=== PATIENT | male | born 1990 | race African-American/Black ===

== ENCOUNTER 2016-07-13 00:32 | Emergency (ER) | payer OTHER ==
[~2016-07-13] VITALS: Ht 180.3 cm; Wt 93.0 kg
[2016-07-13 00:34] VITALS: BP 138/76; PULSE 102; RESP 16; TEMP 98.6; O2SAT 98
[2016-07-13] MEDS ORDERED: CEPHALEXIN MONOHYDRATE 500 MG CAP PO ONE (01:30)
[2016-07-13] MEDS ORDERED: LIDOCAINE 1%/EPINEPHrine 1:100,000 SOLN 20 ML VIAL INFIL ONE (01:30)
[2016-07-13] MEDS ORDERED: SULFAMETHOXAZOLE-TRIMETHOPRIM DS 800-160 MG TAB PO ONE (01:30)
--- NOTE | 2016-07-13 01:50 | PD ---
HPI Chief Complaint: Lump, Cyst, Hernia Time Seen by Provider: 01:10 Travel History International Travel<30 days: No Contact w/Intl Traveler<30days: No Traveled to known affect area: No History of Present Illness HPI Patient comes in a possible abscess to his left lower buttocks that began 3 days. Patient has been using warm compresses to this as well as using Hydrocortone cream with little to no relief of symptoms. Pain is pressure-like in nature without radiation. Pain is worse with palpation. Patient reports he had something similar in the past. Denies any fevers. PFSH Past Medical History Respiratory: Yes (ASTHMA) Social History Alcohol Use: Yes Tobacco Use: No Substance Use: No Allergies-Medications (Allergen,Severity, Reaction): Coded Allergies: No Known Allergies (Unverified , 07/13/16) Reported Meds & Prescriptions Reported Meds & Active Scripts Active Keflex (Cephalexin) 500 Mg Cap 500 Mg PO Q8H Bactrim DS (Sulfamethoxazole-Trimethoprim) 800-160 Mg Tab 1 Tab PO BID Review of Systems Except as stated in HPI: all other systems reviewed are Neg Physical Exam Narrative GENERAL: Well-developed, well nourished, in no acute distress, and non-ill appearing. SKIN: Warm and dry. Indurated fluctuant abscess noted left lower buttocks area is tender to palpation. There is no crepitus. HEAD: Atraumatic. Normocephalic. EYES: Pupils equal and round. EOMI. No scleral icterus. No injection or drainage. ENT: No nasal bleeding or discharge. Mucous membranes pink and moist. NECK: Trachea midline. Supple. No nuclear rigidity. RESPIRATORY: No accessory muscle use. No respiratory distress. MUSCULOSKELETAL: No obvious deformities. No clubbing. No cyanosis. No edema. Full range of motion. NEUROLOGICAL: Awake and alert. No obvious cranial nerve deficits. Motor grossly within normal limits. Normal speech. PSYCHIATRIC: Appropriate mood and affect; insight and judgment normal. Data Data Last Documented VS Vital Signs Date Time Temp Pulse Resp B/P Pulse Ox O2 Delivery O2 Flow Rate FiO2 07/13/16 00:34 98.6 102 16 138/76 98 Orders Lidocai-Epi 1%-1:100,000 Inj (Xylocaine- (07/13/16 01:30) Sulfamet-Trimeth Ds 800-160 Mg (Bactrim (07/13/16 01:30) Cephalexin (Keflex) (07/13/16 01:30) MDM Medical Decision Making Medical Screen Exam Complete: Yes Emergency Medical Condition: Yes Differential Diagnosis Abscess, cellulitis, folliculitis, other Narrative Course The patient has no evidence of significant cellulitis. There is no evidence of necrotizing fasciitis/ Forneys at this time. The patient will be discharged on antibiotics. The patient was given signs and symptoms warnings for worsening infection, such as spreading of redness, increasing pain, and/or swelling, associated heat, or fever or feels worse, and instructed to return immediately if these signs or symptoms worsen. The patient is to return in 2 days for recheck. Sooner if worsens or as needed. The patient agrees with plan. Patient in no obvious distress upon re-evaluation. Patient was asked if they wanted to speak to my attending, which the patient did not wish to do at this time. Any questions/concerns in reference to patient diagnosis/condition discussed and clarified prior to patient's discharge. Reinforced sheer importance of close follow up with patient's primary physician or primary care clinic. Instructed patient to return to ED immediately, if symptoms return/ worsen. Pt showed understanding of above instructions. Further instructions and recommendations were detailed in discharge paperwork. Pt ambulated without difficulty out of ED at discharge. Procedures Procedure Narrative INCISION AND DRAINAGE OF ABSCESS: Verbal consent was obtained. The area was prepped. A subcutaneous wheal of 1% Xylocaine with epi with a total number 3 mL was used to anesthetize the area. The area was properly anesthetized. A number 11 scalpel was used to make a 1-cm incision across the area of the abscess. The abscess was drained and irrigated with normal saline. Quarter inch iodoform packing was placed in the wound. Sterile dressing applied by nurse. Patient tolerated procedure well. Patient advised to return here in 2 days to have packing removed and wound rechecked. Patient verbalized understanding. Procedure was performed with the assistance of staff development educator Katia. Diagnosis Primary Impression: Abscess Patient Instructions: Abscess (GEN), Abscess Follow-up (ED), Abscess Incision and Drainage (DC), General Instructions, Sitz Bath (GEN) Additional Instructions: Follow-up with your primary care physician or return here in 2 days for recheck. Take all medication as prescribed. Apply warm compresses or use sitz baths multiple times a day to facilitate drainage. Return to the emergency department if symptoms get worse. Med/Other Pt SpecificInfo: Prescription(s) given Scripts Cephalexin (Keflex)500 Mg [id number] Mg PO Q8H #30 CAP Ref 0 Prov:Melida Tee MD 07/13/16 Sulfamethoxazole-Trimethoprim (Bactrim DS)800-160 Mg Tab1 Tab PO BID #20 TAB Ref 0 Prov:Melida Tee MD 07/13/16 Disposition: 01 DISCHARGE HOME Condition: Stable Dre Us Jul 13, 2016 01:50
[2016-07-13] MEDS ORDERED: CEPH-460 PO (01:51)
[2016-07-13] MEDS ORDERED: BACT800T5 PO (01:51)
== END 2016-07-13 02:24 | disposition home or self-care (01) ==
LOC: NEPB 00:32
DX: L02.31 Cutaneous abscess of buttock (principal); Z87.09 Personal history of other diseases of the respiratory system
CPT/HCPCS: 10061

== ENCOUNTER 2016-11-09 00:15 | Emergency (ER) | payer SELFPAY ==
[~2016-11-09] VITALS: Ht 175.3 cm; Wt 88.0 kg
[2016-11-09 00:15] VITALS: BP 131/83; PULSE 96; RESP 18; TEMP 99; O2SAT 97
[~2016-11-09 00:15] MED LIST: BACT800T5 PO; CEPH-460 PO
[2016-11-09] MEDS ORDERED: BACT800T5 PO (00:57)
[2016-11-09] MEDS ORDERED: PERC5TAB12 PO (00:57)
[2016-11-09] MEDS ORDERED: METR-1 PO (00:57)
[2016-11-09] MEDS ORDERED: metroNIDAZOLE 500 MG TAB PO ONE (01:00)
[2016-11-09] MEDS ORDERED: oxyCODONE/ACETAMINOPHEN 5 MG/325 MG TAB PO ONE (01:00)
[2016-11-09] MEDS ORDERED: SULFAMETHOXAZOLE-TRIMETHOPRIM DS 800-160 MG TAB PO ONE (01:00)
--- NOTE | 2016-11-09 01:08 | PD ---
HPI Chief Complaint: Lump, Cyst, Hernia Time Seen by Provider: 01:01 Travel History International Travel<30 days: No Contact w/Intl Traveler<30days: No Traveled to known affect area: No History of Present Illness HPI 26-year-old black male presents to emergency Department with complaints of a painful draining area to the left buttocks over the last week. He states that he had gotten much bigger or more tender over last 2 or 3 days. Today it had opened and started draining. He states that he had an incision and drainage done in the same area in the past. He also states that he was diagnosed a little over one year ago with Crohn's disease. He had an upper and lower endoscopy which confirmed it when he had lived up [place]. He states that he does not have a primary care doctor here in [place]. The patient denies any fever or chills. No nausea vomiting. No abdominal pain or pelvic pain. He states that he's been eating and drinking normally. Patient states the pain is moderate to severe. Worse with movement and palpation. Positive purulent drainage. PFSH Past Medical History Narrative Medical Crohn's disease Respiratory: Yes (ASTHMA) Tetanus Vaccination: < 5 Years Past Surgical History Surgical History: No Previous Surgery Social History Alcohol Use: Yes Tobacco Use: No Substance Use: No Allergies-Medications (Allergen,Severity, Reaction): Coded Allergies: No Known Allergies (Unverified , 07/13/16) Reported Meds & Prescriptions Reported Meds & Active Scripts Active Percocet (Oxycodone-Acetaminophen) 5-325 mg Tab 1-2 Tab PO Q6H PRN Flagyl (Metronidazole) 500 Mg Tab 500 Mg PO QID Bactrim DS (Sulfamethoxazole-Trimethoprim) 800-160 Mg Tab 1 Tab PO BID Keflex (Cephalexin) 500 Mg Cap 500 Mg PO Q8H Bactrim DS (Sulfamethoxazole-Trimethoprim) 800-160 Mg Tab 1 Tab PO BID Review of Systems Except as stated in HPI: all other systems reviewed are Neg Physical Exam Narrative GENERAL: Well-developed, well-nourished in no acute distress. Nontoxic appearing. The patient's examined in the presence of the nurse. HEAD: Normocephalic, atraumatic. EYES: Pupils equal round and reactive. Extraocular motions intact. No scleral icterus. No injection or drainage. ENT: TMs clear without erythema. The external auditory canals clear. Nose: clear . Posterior pharynx is pink and moist. No tonsillar edema or exudate. Uvula midline. Airway patent. NECK: Trachea midline.Supple, nontender, moves head freely. No central bony tenderness or spasm. CARDIOVASCULAR: Regular rate and rhythm without murmurs, gallops, or rubs. RESPIRATORY: Clear to auscultation. Breath sounds equal bilaterally. No wheezes , rales, or rhonchi. GASTROINTESTINAL: Abdomen soft, non-tender, nondistended. No hepato-splenomegaly , or palpable masses. No guarding. EXTREMITIES: No clubbing, cyanosis, or edema. No joint tenderness, effusion, or edema noted. BACK: Nontender without deformity or crepitance. No flank tenderness. Rectal: Patient has a fluctuant draining abscess to the left buttocks at the 7: 00 hour off the rectum. This does not appear to be involving the perianal area. The left buttocks is tender with a indurated area with central fluctuance. There is a 1 cm open area of draining purulent pus. The area is decompressed manually. The rectum is probed with a gloved finger and no perianal abscesses felt. I see no obvious fistula Data Data Last Documented VS Vital Signs Date Time Temp Pulse Resp B/P Pulse Ox O2 Delivery O2 Flow Rate FiO2 11/09/16 00:15 99.0 96 18 131/83 97 Room Air Orders Sulfamet-Trimeth Ds 800-160 Mg (Bactrim (11/09/16 01:00) Metronidazole (Flagyl) (11/09/16 01:00) Oxycodone-Acetamin 5-325 Mg (Percocet (11/09/16 01:00) MDM Medical Decision Making Medical Screen Exam Complete: Yes Emergency Medical Condition: Yes Medical Record Reviewed: Yes Differential Diagnosis Differential diagnoses: Pilonidal cyst, perirectal abscess, perianal abscess, rectal fistula, buttock abscess Narrative Course I expressed to the patient my concern that with Crohn's disease these type of infections may be associated with rectal fistulas. He states that he had a colonoscopy done within the last year and a half. He states that he does not know the complete results of whether he had a fistular not but states it did confirm his disease. Patient has no abdominal pain. He is eating and drinking. At this point he has open draining abscess to his left buttocks cheek. He will continue sitz baths at home. He will be given Bactrim DS, [id number], 2-Percocet 5 mg by mouth here. He is advised to follow-up with a primary care doctor as well as a colorectal doctor and will need further evaluation to rule out fistula or worsening Crohn's disease. At this point I will not start any prednisone. He is advised to return if he develops worsening pain, fever, nausea, vomiting or abdominal pain. Diagnosis Primary Impression: Left buttock abscess Additional Impressions: Crohns disease rule out fistula Patient Instructions: Narcotic given in the ED, General Instructions Departure Forms: Tests/Procedures, Work Release Special Instructions: No work 4 days Additional Instructions: Rest. Elevation. keep clean and dry. Sitz baths 3 times daily Daily wound care with soap and water. Three Advil every 6 hours. Bactrim DS, Flagyl and Percocet for severe pain. Follow-up with a primary care doctor 48 hours. Follow-up with a colorectal doctor in one week. Return to the ER for any problems. Med/Other Pt SpecificInfo: Prescription(s) given Scripts Oxycodone-Acetaminophen (Percocet)5-325 mg Tab1-2 Tab PO Q6H PRN (PAIN) #20 TAB Ref 0 Prov:Kimberly Montenegro MD 11/09/16 Metronidazole (Flagyl)500 Mg [id number] Mg PO QID #40 TAB Ref 0 Prov:Kimberly Montenegro MD 11/09/16 Sulfamethoxazole-Trimethoprim (Bactrim DS)800-160 Mg Tab1 Tab PO BID #20 TAB Prov:Kimberly Montenegro MD 11/09/16 Disposition: 01 DISCHARGE HOME Condition: Stable New Sharma Nov 09, 2016 01:08
== END 2016-11-09 01:45 | disposition home or self-care (01) ==
LOC: NEPK 00:15
DX: L02.31 Cutaneous abscess of buttock (principal); K50.90 Crohn's disease, unspecified, without complications; J45.909 Unspecified asthma, uncomplicated; Z79.899 Other long term (current) drug therapy
CPT/HCPCS: 99285

== ENCOUNTER 2017-05-19 19:21 | Emergency (ER) | payer SELFPAY ==
[~2017-05-19 19:21] MED LIST changes: +METR-1 PO; +PERC5TAB12 PO
[2017-05-19 19:22] VITALS: BP 137/80; PULSE 88; RESP 16; TEMP 99; O2SAT 96
--- NOTE | 2017-05-19 20:31 | PD ---
HPI Chief Complaint: Oral / Dental Pain or Problem Time Seen by Provider: 20:23 Travel History International Travel<30 days: No Contact w/Intl Traveler<30days: No Traveled to known affect area: No History of Present Illness HPI 26-year-old male here for evaluation of left jaw pain. The patient reports that 2 days ago while eating he felt as though his jaw may been dislocated. He reports that it relocated and he had some pain afterwards. Today while yawning he again had the same sensation. He is having persistent pain in his left jaw since then. Pain is sharp, constant, moderate to severe, worse with movement and palpation. He states he is hardly able to open his mouth without causing pain. He is able to swallow and tolerate his secretions. No fevers or chills. No direct trauma to his jaw. He took Tylenol without relief of pain. PFSH Past Medical History Asthma: Yes Gastrointestinal Disorders: Yes (CROHNS) Respiratory: Yes (ASTHMA) ?: Not Social History Alcohol Use: Yes Tobacco Use: No Substance Use: No Allergies-Medications (Allergen,Severity, Reaction): Coded Allergies: No Known Allergies (Unverified , 07/13/16) Reported Meds & Prescriptions Reported Meds & Active Scripts Active Percocet (Oxycodone-Acetaminophen) 5-325 mg Tab 1-2 Tab PO Q6H PRN Flagyl (Metronidazole) 500 Mg Tab 500 Mg PO QID Bactrim DS (Sulfamethoxazole-Trimethoprim) 800-160 Mg Tab 1 Tab PO BID Keflex (Cephalexin) 500 Mg Cap 500 Mg PO Q8H Bactrim DS (Sulfamethoxazole-Trimethoprim) 800-160 Mg Tab 1 Tab PO BID Review of Systems Except as stated in HPI: all other systems reviewed are Neg Physical Exam Narrative GENERAL: Well-developed, well-nourished, comfortable, no apparent distress. SKIN: Focused skin assessment warm/dry. HEAD: Atraumatic. Normocephalic. EYES: Pupils equal and round. No scleral icterus. No injection or drainage. ENT: No nasal bleeding or discharge. Mucous membranes pink and moist. Normal appearing teeth without obvious cavities. No intraoral lesions. No fluctuance or induration. There appears to be normal alignment of the maxilla and mandible. There is tenderness along the left TMJ without obvious swelling or deformity. No tenderness along the right TMJ. Bilateral tympanic members and external auditory canals are normal. No trismus. NECK: Trachea midline. No JVD. CARDIOVASCULAR: Regular rate and rhythm. RESPIRATORY: No accessory muscle use. MUSCULOSKELETAL: No obvious deformities. No clubbing. No cyanosis. No edema. NEUROLOGICAL: Awake and alert. No obvious cranial nerve deficits. Motor grossly within normal limits. Normal speech. PSYCHIATRIC: Appropriate mood and affect; insight and judgment normal. Data Data Last Documented VS Vital Signs Date Time Temp Pulse Resp B/P (MAP) Pulse Ox O2 Delivery O2 Flow Rate FiO2 05/19/17 19:22 99.0 88 16 137/80 (99) 96 Room Air Orders Orders Facial Bones - Comp([id number]) (05/19/17 ) MDM Medical Decision Making Medical Screen Exam Complete: Yes Emergency Medical Condition: Yes Differential Diagnosis Mandibular subluxation, TMJ, dental pain/infection Narrative Course Vital signs are within normal limits. Facial bones x-ray shows no fractures or dislocations. Left inferior alveolar nerve block was performed and the patient had immediate relief of pain. There are no signs or symptoms to suggest infection. There is no trismus. Normal range of opening and closing of the mouth which was made easier after his pain resolved from the inferior alveolar nerve block. I believe that the patient may have subluxed his jaw while eating 2 days ago and relocated it at that same time, then did the same today while yawning. Patient advised to take ibuprofen for pain and to follow-up with a dentist this week. He was informed on when to return to the emergency department. He verbalizes understanding and agreement with plan. Procedures Procedure Narrative Left inferior alveolar nerve block: 1.5 cc 1% lidocaine was injected in the area of the left inferior alveolar nerve. Patient experienced immediate relief of jaw pain. Tolerated well. No complications. Diagnosis Primary Impression: Jaw pain Referrals: Dentist 3 days Additional Instructions: Follow-up with a dentist or a primary care physician this week. Avoid opening your mouth too wide. Take ibuprofen for pain. Take tramadol for extreme pain and do not drink alcohol or drive while taking this medication. Return to the emergency department for worsening symptoms or any other concerns. Scripts Tramadol (Tramadol) 50 Mg Tab 50 MG PO Q8H Y for PAIN, #10 TAB 0 Refills Prov: Demetrius Adler MD 05/19/17 Disposition: 01 DISCHARGE HOME Condition: Stable Michelle Adleran N MD May 19, 2017 20:31
--- NOTE | 2017-05-19 21:03 | RADRPT ---
EXAM DATE/TIME: 05/19/2017 20:40 [facility] COMPARISON: No previous studies available for comparison. INDICATIONS : Patient was chewing food when they felt a sharp pain in left side of face/jaw. Patient later was yawn ing and got the pain back in left side of face. No known injury. MEDICAL HISTORY : None. SURGICAL HISTORY : None. ENCOUNTER: Initial ACUITY: 2 days PAIN SCORE: 9/10 LOCATION: Left face/jaw FINDINGS: Multiple views of the facial bones demonstrate no evidence of fracture. The nasal bone is intact. T he zygomatic arches are intact. The infraorbital rim is intact. The maxillary sinus is clear withou t air fluid level. No radiopaque foreign bodies are seen. CONCLUSION: Unremarkable examination of the facial bones. Cj Perry Jr., MD on May 19, 2017 at 21:00 Board Certified Radiologist. This report was verified electronically.
[2017-05-19] MEDS ORDERED: TRAM50TA PO (21:23)
[2017-05-19 21:44] VITALS: BP 138/78
== END 2017-05-19 21:44 | disposition home or self-care (01) ==
LOC: NEPD 19:21
DX: R68.84 Jaw pain (principal); Z87.19 Personal history of other diseases of the digestive system; Z87.09 Personal history of other diseases of the respiratory system
CPT/HCPCS: 64450; 70150